=== PATIENT | female | born 1945 | race Native Hawaiian/Other Pacific Islander ===

== ENCOUNTER 2018-04-26 12:53 | Emergency (ER) | payer OTHER ==
[~2018-04-26] VITALS: Ht 162.6 cm; Wt 60.3 kg
[2018-04-26 13:52] LABS: POTASSIUM 3.9 mmol/L (3.6-5.2)
[2018-04-26 13:57] LABS: PLATELET COUNT 322 K/uL (152-353)
[2018-04-26 14:55] VITALS: BP 138/66; TEMP 98
[2018-04-26] MEDS ORDERED: LISI10TA11 PO (17:45)
[2018-04-26] MEDS ORDERED: MENEST0.625 MG PO (17:50)
[2018-04-26] MEDS ORDERED: METOPROLOL25 M1 PO (17:51)
[2018-04-26] MEDS ORDERED: POLY GLYCOL3350 M1 PO (17:54)
[2018-04-26] MEDS ORDERED: OMEP40CA PO (17:56)
[2018-04-26] MEDS ORDERED: MAGICMOUTH PO (17:58)
== END 2018-04-26 14:55 | disposition other institution (70) ==
LOC: ED 12:53
PROVIDERS: Family Medicine
DX: F41.8 Other specified anxiety disorders (principal); F60.3 Borderline personality disorder; I10 Essential (primary) hypertension; Z04.6 Encounter for general psychiatric examination, requested by authority
CPT/HCPCS: 36415; 80053; 81000; 85027; 93005; 99285